=== PATIENT | female | born 2000 | race Caucasian/White ===

== ENCOUNTER 2020-12-02 08:08 | Outpatient (REF) | payer OTHER, SELFPAY ==
[2020-12-02 08:30] LABS: COVID-19 Test Negative (Negative)
== END 2020-12-02 08:09 | disposition home or self-care (01) ==
LOC: HO.LAB 08:08
PROVIDERS: Visit Provider Internal Medicine
DX: Z20.822 Contact with and (suspected) exposure to COVID-19 (principal)
CPT/HCPCS: 36415; 87635; C9803

== ENCOUNTER 2020-12-08 07:35 | Outpatient (REF) | payer OTHER, SELFPAY ==
[2020-12-08 07:56] LABS: COVID-19 Test Negative (Negative)
== END 2020-12-08 07:36 | disposition home or self-care (01) ==
LOC: HO.LAB 07:35
PROVIDERS: Visit Provider Internal Medicine
DX: Z20.822 Contact with and (suspected) exposure to COVID-19 (principal)
CPT/HCPCS: 36415; 87635; C9803

== ENCOUNTER 2020-12-14 18:03 | Emergency (ER) | payer OTHER, SELFPAY ==
[2020-12-14 18:07] VITALS: BP 113/81; PULSE 96; RESP 20; TEMP 37.7; O2SAT 98; BMI 36.6
--- NOTE | 2020-12-14 19:22 | ED.FEVER ---
HPI - Fever General Chief Complaint: Fever Stated Complaint: fever Time Seen by Provider: 12/14/20 19:03 Source: patient Mode of arrival: ambulatory Limitations: no limitations History of Present Illness HPI Narrative: 20 yr old female with a past medical history of tetralogy of fellot s/p repair here with complaints of subjective fevers, chills, headache, cough x4 days. Received Moderna vaccine 1 of 2 on Tuesday. Everyone in her home is COVID positive Related Data Allergies Allergy/AdvReac Type Severity Reaction Status Date / Time No Known Allergies Allergy Unverified 04/24/20 16:49 Review of Systems Review of Systems: Yes all other systems are reviewed and are negative Constitutional: Constitutional: Reports no additional constitutional complaints, Denies body ache(s), Denies chills, Reports fever(s) (Subjective), Reports headache(s) and Denies weakness Eyes: Eyes: Reports no additional eye complaints and Denies change in vision ENT: Reports system reviewed and no additional complaints, except as documented, Denies dizziness, Reports headache(s), Denies nasal congestion, Denies nasal discharge and Denies neck pain Cardiovascular: Cardiovascular: Reports no additional cardiovascular complaints, Denies chest pain, Denies leg edema and Denies dyspnea Respiratory: Respiratory: Reports no additional respiratory complaints, Reports cough and Denies dyspnea Gastrointestinal: Gastrointestinal: Reports no additional gastrointestinal complaints, Denies abdominal pain, Denies diarrhea, Denies nausea and Denies vomiting Genitourinary: Genitourinary: Reports no additional female genitourinary complaints and Denies urinary incontinence Musculoskeletal: Musculoskeletal: Reports no additional musculoskeletal complaints, Denies back pain, Denies arthralgias, Denies joint swelling, Denies neck pain, Denies numbness and Denies tingling Integumentary/Breasts: Skin/Breast: Reports system reviewed and no additional complaints, except as docu and Denies rash Neurologic: Reports system reviewed and no additional complaints, except as documented, Denies Abnormal speech present, Denies dizziness, Reports headache(s), Denies numbness, Denies tingling and Denies weakness PMFSH Past Medical History Attestation statement: The following information was validated with the patient. Source: old records reviewed and nursing notes reviewed Medical History Fallots tetralogy Heart murmur Social History Social History Advance Directives: No Advance Directives Information Provided: Yes Physical Exam Vital Signs: Vital Signs: Last Vital Signs Temp 99.8 F 12/14/20 18:07 Pulse 96 12/14/20 18:07 Resp 20 12/14/20 18:07 BP 113/81 12/14/20 18:07 Pulse Ox 98 12/14/20 18:07 Body Mass Index 36.6 Const: General: cooperative, healthy appearing, comfortable and no acute distress Orientation/consciousness: patient oriented x3 Limitations: no limitations HENMT: Head: Yes normal to inspection Ears: hearing grossly normal bilaterally General nose exam: Normal external nose present Face and sinus: Yes normal facial exam Mouth: Normal oral and palatal mucosa present Throat: Yes posterior oropharynx normal Eyes: General: appearance normal, both eyes and all related structures Pupils: Equal, round and reactive pupils present Neck: Neck: Yes normal visual inspection Chest: Chest palpation & inspection: normal inspection of the chest Resp: Effort & Inspection: normal respiratory effort Auscultation: clear to auscultation bilaterally Cardio: Rate: regular rate Rhythm: regular rhythm Peripheral pulses: Peripheral pulses 2+ throughout GI: Inspection: Yes normal to inspection Palpation (GI): Soft to palpation and nontender Auscultation: normal bowel sounds Back/Spine/Pelvis: Thoracic/Lumbar Spine: thoracic and lumbar spine normal to inspection Skin: General skin exam: no rashes or lesions noted Neuro: General: patient oriented x3, no focal motor deficits and normal sensation to monofilament Cranial nerves: Yes Equal, round and reactive pupils present Cognition (Neuro): normal cognition Speech: No Abnormal speech present Gait exam (Neuro): Normal gait present Motor exam (neuro): 5/5 motor strength present throughout Extrem: General: Yes normal to inspection, Yes no pedal edema and Yes no calf tenderness Course Course Course Narrative: 20 year old female here with URI symptoms x4 days. COVID exposure. COVID positive here. Hemodynamically stable. Well appearing. Speaking full sentences in no apparent distress. Lung sounds clear. Reviewed quarantine for home. Reviewed worrisome signs and symptoms of when to return to the emergency department. Comfortable discharge home. MDM - Fever Lab Data Labs: Lab Results 12/14/20 Range/Units 19:20 COVID-19 (ABEL) Positive A (Negative) COVID-19 Clin Com See Note Discharge Plan Discharge Clinical Impression: COVID-19 Patient Disposition: Home, Self-Care Instructions: COVID-19 (Coronavirus Disease 2019) (ED) Additional Instructions: Increase fluids, rest Take Motrin or Tylenol for pain or fever as needed Per the CDC you need to quarantine for total of 14 days from when your symptoms started Referrals: Lilo Zabala MD [Primary Care Provider] - 2 days Stand Alone Forms: Work/School Release
[2020-12-14 20:01] LABS: COVID-19 Test Positive (Negative); IDNOW Serial# 9DD0AD1C
== END 2020-12-14 20:29 | disposition home or self-care (01) ==
PROVIDERS: Nurse Practitioner Family; Emergency Provider Emergency Medicine; PCP Pediatrics
DX: U07.1 COVID-19 (principal); R50.9 Fever, unspecified; R51.9 Headache, unspecified; R05 Cough
CPT/HCPCS: 36415; 87635; 99283

== ENCOUNTER 2020-12-17 18:39 | Emergency (ER) | payer OTHER, SELFPAY ==
--- NOTE | ~2020-12-17 | XR_ITS ---
EXAMINATION: XR CHEST CLINICAL INFORMATION: Cough COMPARISON: 12/05/2006 TECHNIQUE: Frontal view of the chest was obtained. FINDINGS: Again seen is median sternotomy and mild cardiac enlargement. Some ill-defined patchy density seen at the right lung base and in the left midlung. No effusions are seen. No CHF is present. XR/XR chest 1V IMPRESSION: Ill-defined patchy infiltrates right lung base and left midlung.
--- NOTE | 2020-12-17 18:13 | ECG_ITS ---
Test Reason : CHEST PAIN Blood Pressure : / mmHG Vent. Rate : 086 BPM Atrial Rate : 086 BPM P-R Int : 128 ms QRS Dur : 164 ms QT Int : 408 ms P-R-T Axes : 053 108 058 degrees QTc Int : 488 ms Normal sinus rhythm Right bundle branch block Abnormal ECG No previous ECGs available Referred By: Generic ED Physician Electronically Signed By:BHARGAV BARBOUR MD
[2020-12-17 20:00] VITALS: BP 126/62; PULSE 86; RESP 16; TEMP 37.4; O2SAT 98; BMI 41.1
--- NOTE | 2020-12-17 21:20 | ED.GENADULT ---
HPI - General Adult General Chief complaint: Upper Respiratory Symptoms Stated complaint: covid + Time Seen by Provider: 12/17/20 20:56 Source: patient Mode of arrival: ambulatory Limitations: no limitations History of Present Illness HPI narrative: 20 y/o female with known COVID-19 presents to the ER wtih SOB, dry cough, N/V and chest tightness when she coughs. She states she got the 1st Moderna COVID vaccine 1 week ago, started to feel poorly the next couple of days. However when 4 days later she still was feeling ill she got tested and was found to be COVID positive. She has fevers of 100 and has been taking Tylenol and Motrin. She has no HENSON but has SOB when she has coughing fits. She feels fatigued and generally weak. She lives with her mom who is fully vaccinated and feeling well. complaint: COVID symptoms Onset (ago): day(s) (5) Location: head, chest and abdomen Radiation: non-radiation Severity: moderate Quality: aching Pain Consistency: intermittent Relieving factors: medication Exacerbating factors: movement Associated symptoms: chest pain, cough, fever/chills, headaches, loss of appetite, malaise, nausea/vomiting, shortness of breath and weakness Treatments prior to arrival: none Related Data Previous Rx's Medication Instructions Recorded albuterol sulfate 1 inh INHALATION QID PRN #6.7 g 12/17/20 azithromycin [Zithromax Z-Tyron] See Rx Instructions PO .COMPLEX #6 12/17/20 tab ondansetron 4 mg PO Q8H PRN #10 tab 12/17/20 prednisone 40 mg PO DAILY #10 tab 12/17/20 Allergies Allergy/AdvReac Type Severity Reaction Status Date / Time No Known Allergies Allergy Unverified 04/24/20 16:49 Review of Systems Review of Systems: Constitutional:+ Fever, + Chills ENT/Mouth: No sore throat, No Rhinorrhea, No Swallowing Difficulty Cardiovascular: + Chest Pain, +SOB, No Orthopnea, No Edema Respiratory: + Cough, No Sputum, No Wheezing, No dyspnea Gastrointestinal: + Nausea, + Vomiting, No Diarrhea, No abdominal Pain Genitourinary: No Dysuria, No Urinary Frequency, No Hematuria Musculoskeletal: No joint pain, No Myalgias Skin: No Skin Lesions, No rash Neuro: No Weakness, No Numbness, No Dizziness, + Headache Heme/Lymph: No Bruising, No Lymphadenopathy PMFSH Past Medical History Attestation statement: The following information was validated with the patient. Medical History Fallots tetralogy Heart murmur Social History Social History Advance Directives: No Advance Directives Information Provided: No Patient : No Physical Exam Vital Signs: Vital Signs: Last Vital Signs Temp 99.4 F 12/17/20 20:00 Pulse 86 12/17/20 20:00 Resp 16 12/17/20 20:00 BP 126/62 12/17/20 20:00 Pulse Ox 98 12/17/20 20:00 Body Mass Index 41.1 Appearance: Alert. Oriented X3. No acute distress. Eyes: Pupils equal, round and reactive to light. ENT: Pharynx normal. Neck: Normal inspection. Neck supple. CVS: Normal heart rate and rhythm. Pulses normal. Respiratory: No respiratory distress. Breath sounds normal. Abdomen: Soft and nontender. +BS x4 Skin: Skin warm and dry. Normal skin color. Normal skin turgor. No rashes. Extremities: No lower extremity edema. Negative Cassandra's sign. Neuro: Oriented X 3. Steady gait. Non-focal Course Course Course Narrative: 20 y/o female presenting with COVID-19 symptoms including SOB, cough, chest tightness when coughing as well as N/V. Her VS are normal. SpO2 98% on room air with clear lungs on exam. She is breathing comfortably. She was ambulated by myself with pulse oximetry and SpO2 remained 94% or greater without HENSON. PERC negative. Doubt PE. Her CXR shows evidence of pneumonia - will treat as COVID pneumonia with steroids and azithromycin as well as PRN albuterol inhaler. She is tolerating PO Powerade in the exam room with no vomiting. No abdominal tenderness. She is stable for d/c home with anti-emetic. Warning signs discussed to prompt urgent re-evaluation. Patient expressed understanding and agrees with plan. Procedures Pulse Oximetry Interpretation Digit-Finger: Initial pulse oximetry readin Pulse Oximetry: 94 Actions Taken: none Additional Comments: ambulated on room air without desaturations or respiratory distress Discharge Plan Discharge Clinical Impression: COVID-19 Patient Disposition: Home, Self-Care Instructions: COVID-19 (Coronavirus Disease 2019) (ED) Additional Instructions: You were found to be COVID-19 POSITIVE today. Your oxygen levels were normal. Your chest x-ray showed evidence of pneumonia which is often seen with COVID. Rest. Drink plenty of fluids. Do not go out in public for the next 5-7 days, or at least 48 hours after your symptoms resolved. Take over the counter cold/flu medications as needed for your symptoms. Take Tylenol and/or Motrin as needed for fevers and body aches. Follow up with your doctor this week. If you shortness of breath worsens, if you develop difficulty breathing or any other concerning symptom come back to the ER for further evaluation. Prescriptions: New ondansetron 4 mg tablet,disintegrating 4 mg PO Q8H PRN (Reason: nausea and vomiting) Qty: 10 RF: 0 prednisone 20 mg tablet 40 mg PO DAILY Qty: 10 RF: 0 azithromycin [Zithromax Z-Tyron] 250 mg tablet See Rx Instructions PO .COMPLEX Qty: 6 RF: 0 albuterol sulfate 90 mcg/actuation HFA aerosol inhaler 1 inh inhalation QID PRN (Reason: shortness of breath or wheezing) Qty: 6.7 RF: 0 Interventions: ED Discharge Assessment Last Done: 12/17/20 21:51 Discharge Date/Time: 12/17/20 21:54
[2020-12-17 23:30] VITALS: O2SAT 94; O2SAT 98
== END 2020-12-17 21:54 | disposition home or self-care (01) ==
PROVIDERS: Emergency Provider Emergency Medicine; PCP Pediatrics
DX: U07.1 COVID-19 (principal)
CPT/HCPCS: 71045; 93005; 99283; 99284

== ENCOUNTER 2021-05-31 19:10 | Emergency (ER) | payer OTHER, SELFPAY ==
[2021-05-31 19:32] VITALS: BP 109/78; PULSE 71; RESP 16; TEMP 37.2; O2SAT 99; BMI 23.8
[2021-05-31 20:00] VITALS: BP 115/74; PULSE 64; RESP 18; TEMP 37.1; O2SAT 100
[2021-05-31 20:32] LABS: Influenza A PCR NEGATIVE (Negative); Influenza B PCR NEGATIVE (Negative); Resp Syncy Virus RNA Qual PCR NEGATIVE (Negative); SARS COV2 PCR INHOUSE NEGATIVE (Negative)
--- NOTE | 2021-05-31 20:38 | ED.GENADULT ---
HPI - General Adult General Chief complaint: General Medical Stated complaint: Multiple complaints Time Seen by Provider: 05/31/21 20:26 Source: patient Mode of arrival: ambulatory Limitations: no limitations History of Present Illness HPI narrative: Patient with multiple complaints already received COVID-19 vaccine complaining of headache nausea body aches heartburn for last 2 days sensitive to light. No fever no chills never had migraine before no shortness of breath no cough Related Data Previous Rx's Medication Instructions Recorded albuterol sulfate 90 mcg/actuation 1 inh INHALATION QID PRN #6.7 g 12/17/20 aerosol inhaler azithromycin 250 mg tablet See Rx Instructions PO .COMPLEX #6 12/17/20 (Zithromax Z-Tyron) tab ondansetron 4 mg disintegrating 4 mg PO Q8H PRN #10 tab 12/17/20 tablet prednisone 20 mg tablet 40 mg PO DAILY #10 tab 12/17/20 zpwkvhewqz-wqwfdsktxmjix-lxnsyzow 1 cap PO Q6H PRN #20 cap 05/31/21 50 mg-300 mg-40 mg capsule (Fioricet) Allergies Allergy/AdvReac Type Severity Reaction Status Date / Time No Known Allergies Allergy Verified 05/31/21 19:32 Review of Systems Review of Systems: Yes all other systems are reviewed and are negative [facility] Past Medical History Medical History Fallots tetralogy Heart murmur Social History Social History Alcohol intake: never Patient Tobacco Use Status: Never used Tobacco Use of substances other than those prescribed or required for medical reasons: No Advance Directives: No Advance Directives Information Provided: No Physical Exam Vital Signs: Vital Signs: Last Vital Signs Temp 98.8 F 05/31/21 20:00 Pulse 64 05/31/21 20:00 Resp 18 05/31/21 20:00 BP 115/74 05/31/21 20:00 Pulse Ox 100 05/31/21 20:00 Body Mass Index 23.8 Appearance: Alert. Oriented X3. No acute distress. Eyes: PERRLA, ENT: Pharynx normal. Oral Mucosa moist Neck: Normal inspection. Neck supple. CVS: Normal heart rate and rhythm. Pulses normal. Respiratory: No respiratory distress. Equal air entry bilateral, no wheezing/rales/rhonchi Abdomen: Soft and nontender. Bowel sounds are present, Skin: Skin warm and dry. Normal skin color. Extremities: No lower extremity edema. No calf tenderness Neuro: Oriented X 3. Medical Decision Making MDM Narrative Medical decision making narrative: Patient felt better after Imitrex headache almost gone COVID test is negative will discharge patient on Fioricet likely patient has complex migraine Lab Data Lab results reviewed: Yes I reviewed the patient's lab results. Labs: Lab Results 05/31/21 05/31/21 05/31/21 Range/Units 19:40 20:47 20:47 Urine Color YELLOW Urine Appearance HAZY Urine pH 6.0 (5.0-8.0) Ur Specific [place] 1.025 (1.005-1.025) Urine Protein NEG (NEG-TRACE) MG/DL Urine Glucose (UA) NEG (NEG) MG/DL Urine Ketones NEG (NEG) MG/DL Urine Blood NEG (NEG) Urine Nitrite NEG (NEG) Ur Leukocyte Esterase NEG (NEG) Urine Test NEGATIVE (NEGATIVE) Coronavirus (PCR) NEGATIVE (Negative) Influenza Type A (PCR) NEGATIVE (Negative) Influenza Type B (PCR) NEGATIVE (Negative) RSV RNA Qual (PCR) NEGATIVE (Negative) Discharge Plan Discharge Clinical Impression: Migraine Qualifiers: Migraine type: without aura Status migrainosus presence: without status migrainosus Intractability: not intractable Qualified Code(s): G43.009 - Migraine without aura, not intractable, without status migrainosus Patient Disposition: Home, Self-Care Instructions: Migraine Headache (ED) Additional Instructions: Rest at home take medication as advised for possible migraine headache Prescriptions: New mvplieliyx-bovykbfhlkypy-ryoi [Fioricet] 50-300-40 mg capsule 1 cap PO Q6H PRN (Reason: headache) Qty: 20 RF: 0 No Action ondansetron 4 mg tablet,disintegrating 4 mg PO Q8H PRN (Reason: nausea and vomiting) Qty: 10 RF: 0 prednisone 20 mg tablet 40 mg PO DAILY Qty: 10 RF: 0 azithromycin [Zithromax Z-Tyron] 250 mg tablet See Rx Instructions PO .COMPLEX Qty: 6 RF: 0 albuterol sulfate 90 mcg/actuation HFA aerosol inhaler 1 inh inhalation QID PRN (Reason: shortness of breath or wheezing) Qty: 6.7 RF: 0 Interventions: ED Discharge Assessment Last Done: 05/31/21 21:54 Discharge Date/Time: 05/31/21 21:59
[2021-05-31] MEDS: SUMAtriptan succinate 6 MG/0.5 ML VIAL SUBCUT (20:46)
[2021-05-31 20:53] LABS: Appearance Urine HAZY; Color Urine YELLOW; Glucose Urine UA NEG (NEG); Leukocyte Esterase Urine NEG (NEG); Nitrite Urine NEG (NEG); Specific Gravity - Urine 1.025 (1.005-1.025); Urine Blood NEG (NEG); Urine Ketones NEG (NEG); Urine Protein NEG (NEG-TRACE)
[2021-05-31 20:56] LABS: UPreg QC Valid YES; Urine Pregnancy NEGATIVE (NEGATIVE)
--- NOTE | 2021-05-31 21:08 | PC.NURSE ---
patient a&ox3, c/o headache, pt medicated per order, will continue to monitor.
[2021-05-31] MEDS: Ondansetron ODT 4 MG TAB.RAPDIS TRANSLINGU (21:47)
--- NOTE | 2021-05-31 21:47 | PC.NURSE ---
pt medicated per order
--- NOTE | 2021-05-31 21:57 | PC.NURSE ---
patient states her headache has decreased, pain level has decreased to 11/15/
== END 2021-05-31 21:59 | disposition home or self-care (01) ==
PROVIDERS: Emergency Provider Internal Medicine; PCP Pediatrics
DX: G43.009 Migraine without aura, not intractable, without status migrainosus (principal); M79.10 Myalgia, unspecified site; Z20.822 Contact with and (suspected) exposure to COVID-19; Z79.899 Other long term (current) drug therapy
CPT/HCPCS: 0241U; 36415; 81003; 81025; 96372; 99284; J3030

== ENCOUNTER 2022-06-26 19:18 | Emergency (ER) | payer OTHER, SELFPAY ==
[2022-06-26 19:49] VITALS: BP 121/51; PULSE 52; RESP 16; TEMP 36.6; O2SAT 98; BMI 40.7
--- NOTE | 2022-06-26 19:49 | ED.SKABFB ---
HPI - Skin/Abscess/Foreign Bdy General Chief complaint: General Medical Stated complaint: ingrown toe nail Time Seen by Provider: 06/26/22 19:56 Source: patient Mode of arrival: ambulatory History of Present Illness HPI narrative: 21-year-old female presenting to the ED complaining of ingrown nail of the left great toe x1 week. Admits poked area with needle at home with mild pus drainage. Reports increasing pain. Denies fever, chills. MD complaint: other Onset (ago): week(s) Related Data Previous Rx's Medication Instructions Recorded albuterol sulfate 90 mcg/actuation 1 inh inhalation QID PRN shortness 12/17/20 aerosol inhaler of breath or wheezing #6.7 grams azithromycin 250 mg tablet See Rx Instructions PO .COMPLEX #6 12/17/20 (Zithromax Z-Tyron) tabs ondansetron 4 mg disintegrating 4 mg PO Q8H PRN nausea and 12/17/20 tablet vomiting #10 tabs prednisone 20 mg tablet 40 mg PO DAILY #10 tabs 12/17/20 xzifentkxr-pubhntwkgobid-xmlkwfir 1 cap PO Q6H PRN headache #20 caps 05/31/21 50 mg-300 mg-40 mg capsule (Fioricet) cephalexin 500 mg capsule 500 mg PO QID 7 days #28 caps 06/26/22 Allergies Allergy/AdvReac Type Severity Reaction Status Date / Time No Known Allergies Allergy Verified 06/26/22 19:49 Review of Systems Review of Systems: Constitutional: No Fever, No Chills ENT/Mouth: No Ear Pain, No Nasal Congestion, No sore throat, No Rhinorrhea, No Swallowing Difficulty Cardiovascular: No Chest Pain, No SOB Respiratory: No Cough, No Sputum Gastrointestinal: No Nausea, No Vomiting, No Diarrhea, No Constipation, No Abdominal pain Genitourinary: No Dysuria, No Urinary Frequency, No Hematuria, No Flank Pain Musculoskeletal: No joint pain, No Myalgias, No Joint Swelling Skin: + Skin Lesions, No rash Neuro: No Weakness, No Numbness, No Paresthesias Yes all other systems are reviewed and are negative Constitutional: Constitutional: Reports as per [facility] Past Medical History Attestation statement: The following information was validated with the patient. Medical History Fallots tetralogy Heart murmur Social History Social History Alcohol intake: never Patient Tobacco Use Status: Never used Tobacco Advance Directives: No Advance Directives Information Provided: No Physical Exam Vital Signs: Vital Signs: Last Vital Signs Temp 98 F 06/26/22 19:49 Pulse 52 06/26/22 19:49 Resp 16 06/26/22 19:49 BP 121/51 L 06/26/22 19:49 Pulse Ox 98 06/26/22 19:49 O2 Del Method 06/26/22 19:49 BMI result Body Mass Index 40.7 Const: General: cooperative, healthy appearing and no acute distress Orientation/consciousness: patient oriented x3 Limitations: no limitations HEENT: Head: Yes normal to inspection and Yes atraumatic Ears: hearing grossly normal bilaterally General nose exam: Normal external nose present Face and sinus: Yes normal facial exam Eyes: General: appearance normal, both eyes and all related structures EOM: EOMs intact bilaterally Neck: Neck: Yes normal visual inspection and Yes no meningeal signs Resp: Effort & Inspection: normal respiratory effort and no respiratory distress Cardio: Rate: regular rate Heart sounds: S1 normal heart sound present and S2 normal heart sound present Peripheral pulses: dorsalis pedis present Skin: Other: + ingrown toenail noted to left great toe lateral aspect with scant amount of pus drainage and mild erythema. Tender to palpation. No warmth, fluctuance or induration Rashes: no rashes Neuro: General: patient oriented x3, tone normal and no meningeal signs Gait exam (Neuro): Normal gait present Extrem: General: Yes normal to inspection MDM - Skin/Abscess/Foreign Bdy MDM Narrative Medical decision making narrative: 21-year-old female presenting to the ED complaining of ingrown nail of the left great toe x1 week. On exam vital signs stable, NAD, nontoxic-appearing, physical exam as above. Discussed with patient removal in the ED verse with Podiatry and patient would rather f/u with Podiatry will give PO Keflex and recc warm soaks Results discussed with patient including worrisome signs and symptoms and strict return precautions, and when to return to the emergency department. They verbalized understanding and feel safe for discharge at this time. Medical Records Attestation: I reviewed the patient's medical records. Lab Data Attestation: I reviewed the patient's lab results. Discharge Plan Discharge Clinical Impression: Ingrown left big toenail Patient Disposition: Home, Self-Care Instructions: Ingrown Nail (ED) Additional Instructions: Keflex as an antibiotic please take as prescribed. Soak your toe in warm water. Please follow-up with Podiatry. Area begins look worse, continues to have drainage, is red, increasingly swollen, or you develop fever return to the emergency department Prescriptions: New cephalexin 500 mg capsule 500 mg PO QID 7 Days Qty: 28 0RF No Action ondansetron 4 mg tablet,disintegrating 4 mg PO Q8H PRN (Reason: nausea and vomiting) Qty: 10 0RF prednisone 20 mg tablet 40 mg PO DAILY Qty: 10 0RF azithromycin [Zithromax Z-Tyron] 250 mg tablet See Rx Instructions PO .COMPLEX Qty: 6 0RF Rx Instructions: take 500 mg today (day 1), then 250 mg for 4 days (days 2-5) albuterol sulfate 90 mcg/actuation HFA aerosol inhaler 1 inh inhalation QID PRN (Reason: shortness of breath or wheezing) Qty: 6.7 0RF cazzyukdap-yxuikcjbnanox-ojtf [Fioricet] 50-300-40 mg capsule 1 cap PO Q6H PRN (Reason: headache) Qty: 20 0RF Referrals: Daniel Moreno DPM [Physician] - Samina Everett DPM [Physician] - Samina Everett DPM [Physician] - Anatoliy Mcghee DPM [Physician] - Obey Ignacio DPM [Physician] - Justus Gómez MD [Physician] - Interventions: ED Discharge Assessment Last Done: 06/26/22 19:59
--- NOTE | 2022-06-26 19:59 | PC.NURSE ---
pt seen and treated by provider in triage, pt discharged from triage after being registered
== END 2022-06-26 20:01 | disposition home or self-care (01) ==
PROVIDERS: Emergency Provider Student in an Organized Health Care Education/Training Program
DX: L60.0 Ingrowing nail (principal)
CPT/HCPCS: 99282; 99283

== ENCOUNTER 2023-11-05 11:22 | Emergency (ER) | payer OTHER, SELFPAY ==
--- NOTE | ~2023-11-05 | XR_ITS ---
EXAMINATION: XR CHEST CLINICAL INFORMATION: Cough COMPARISON: Chest radiograph from 12/17/2020 TECHNIQUE: Frontal view of the chest was obtained. FINDINGS: Subtle opacities right lung base may reflect atelectasis versus evolving infectious/inflammatory etiology. No pneumothorax. Trachea is midline. Cardiac mediastinal silhouette is stable. No large pleural effusion. Osseous structures are intact. Soft tissues are unremarkable. XR/XR chest 1V IMPRESSION: Subtle opacities right lung base may reflect atelectasis versus evolving infectious/inflammatory etiology.
[2023-11-05 11:30] VITALS: BP 131/80; PULSE 104; RESP 17; TEMP 37.3; O2SAT 95; BMI 38.3
--- NOTE | 2023-11-05 11:33 | ED_ITS ---
HPI - General Adult General Chief complaint: General Medical Stated complaint: pain from head to toe Time Seen by Provider: 11/05/23 11:57 Source: patient Mode of arrival: ambulatory Limitations: no limitations History of Present Illness HPI narrative: 22-year-old female with no significant past medical history presents to emergency department with complaints of a 3 day history of cough, chills, and generalized body aches starting on Tuesday. She reports she has been managing symptoms with huay-lfk-qxfzzom medications with moderate relief in symptoms. She denies any chest pain, shortness of breath pertinent positives and negatives discussed in HPI Related Data Previous Rx's Medication Instructions Recorded albuterol sulfate 90 mcg/actuation 1 inh inhalation QID PRN shortness 12/17/20 aerosol inhaler of breath or wheezing #6.7 grams azithromycin 250 mg tablet See Rx Instructions PO .COMPLEX #6 12/17/20 (Zithromax Z-Tyron) tabs ondansetron 4 mg disintegrating 4 mg PO Q8H PRN nausea and 12/17/20 tablet vomiting #10 tabs prednisone 20 mg tablet 40 mg (2 x 20 mg) PO DAILY #10 tabs 12/17/20 qahmfbjbor-nplrvxdyunvzu-lfyizcfi 1 cap PO Q6H PRN headache #20 caps 05/31/21 50 mg-300 mg-40 mg capsule (Fioricet) cephalexin 500 mg capsule 500 mg PO QID 7 days #28 caps 06/26/22 azithromycin 250 mg tablet See Rx Instructions PO .COMPLEX #6 11/05/23 (Zithromax Z-Tyron) tabs Allergies Allergy/AdvReac Type Severity Reaction Status Date / Time No Known Allergies Allergy Verified 06/26/22 19:49 Review of Systems Review of Systems: Yes all other systems are reviewed and are negative FORMERLY [facility], [facility] Past Medical History Medical History Fallots tetralogy Heart murmur Social History Social History Alcohol intake: never Patient Tobacco Use Status: Never used Tobacco Advance Directives: No Advance Directives Information Provided: No Physical Exam ED Vital Signs: Vital Signs - 24 hr 11/05/23 11:30 Temperature 99.1 F Pulse Rate 104 H Respiratory Rate 17 Blood Pressure 131/80 Pulse Oximetry 95 Oxygen Delivery Method Room Air BMI result Body Mass Index 38.3 Nursing notes and vital signs reviewed. GENERAL APPEARANCE: A&0 x 4, generally well appearing, no acute distress HENMT: Normal to inspection, atraumatic, face symmetrical. Normal external ears, nose, and oropharynx clear. EYE: PERRLA, EOM intact, structures appear normal NECK: Supple without stiffness or restricted ROM. HEART: Normal rate and regular rhythm, normal S1/S2, no M/R/G LUNGS: LS CTA, moving air well. Able to speak in complete sentences. No crackles, wheezes, or rhonchi auscultated BACK: No CVAT, no obvious deformity EXTREMITIES: Moving all extremities without difficulty. Normal capillary refill. NEUROLOGICAL: Alert and oriented, moving all 4 extremities with equal strength. CN not formally tested but appearing grossly intact. Observed to ambulate with normal gait. Cognition normal SKIN: Warm and dry without any lesions, rash, or visible sores Course Course Course Narrative: This is an RME: Additional HPI, ROS, PE not included below will be deferred to primary provider. 22 year old female no pmhx presents w/ fatigue, malaise, myalgias, chest tightness, productive cough, fevers, chills since Tuesday. Not improving. Negative covid at home. No Known sick contacts. Denies SOB, headache, vision changs, dizziness, weakness Medical Decision Making Medical Decision Making MDM Narrative: Old records reviewed for previous imaging, lab studies, ECGs, and notes. Patient was assessed the emergency department with no acute distress or toxicity noted. nasal serology positive for influenza negative for COVID. Chest x-ray completed, which have independently interpreted as negative for obvious acute findings. Radiologist remarks on atelectasis versus beginnings of infection. As patient has a mildly elevated temperature with tachycardia, plan for 5 day course of azithromycin for further prevention of pneumonia. Patient educated to continue use of zvlt-geu-dfwybjn medications for further management of symptoms. Patient is safe for discharge at this time with plan for traa-luz-bawvtfy Tylenol and/or NSAID such as ibuprofen or naproxen for fever/discomfort with dosing as per packaging. HPI, PE, diagnostics, and plan discussed with patient and family with no unanswered questions at this time. Strict return precautions given to return to the emergency department with new, worsening, or concerning emergent symptoms. Recommended to follow-up with there primary care provider in 24-48 hours for further treatment and management. Differential Diagnosis Differential Diagnoses: The differential diagnosis associated with the presentation includes But not limited to upper respiratory infection, viral syndrome, pneumonia, pharyngitis, sepsis, malignancy, asthma, COPD Lab Data MDM Lab Attestation statement: I reviewed the patient's lab results. Labs: Lab Results 11/05/23 Range/Units 11:40 Influenza Type A (PCR) POSITIVE A (Negative) Influenza Type B (PCR) NEGATIVE (Negative) RSV RNA Qual (PCR) NEGATIVE (Negative) SARS-CoV-2 RNA (RT-PCR) NEGATIVE (Negative) Independent Interpretation I performed an independent interpretation of an: Plain X-Ray Interpretation: as negative for obvious pneumonia. Discharge Plan Discharge Clinical Impression: Influenza A Patient Disposition: Home, Self-Care Instructions: Influenza (ED), Droplet Precautions (ED) Prescriptions: New azithromycin [Zithromax Z-Tyron] 250 mg tablet See Rx Instructions PO .COMPLEX Qty: 6 0RF Rx Instructions: For 250 mg dose pack: take 500 mg today (day 1), then 250 mg for 4 days (days 2-5) No Action ondansetron 4 mg tablet,disintegrating 4 mg PO Q8H PRN (Reason: nausea and vomiting) Qty: 10 0RF prednisone 20 mg tablet 40 mg PO DAILY Qty: 10 0RF azithromycin [Zithromax Z-Tyron] 250 mg tablet See Rx Instructions PO .COMPLEX Qty: 6 0RF Rx Instructions: take 500 mg today (day 1), then 250 mg for 4 days (days 2-5) albuterol sulfate 90 mcg/actuation HFA aerosol inhaler 1 inh inhalation QID PRN (Reason: shortness of breath or wheezing) Qty: 6.7 0RF cvmfeyfgar-ixmkfmjzanomb-pxoz [Fioricet] 50-300-40 mg capsule 1 cap PO Q6H PRN (Reason: headache) Qty: 20 0RF cephalexin 500 mg capsule 500 mg PO QID 7 Days Qty: 28 0RF Referrals: Physician,Nonstaff [Primary Care Provider] - Stand Alone Forms: Work/School Release Print Language: Turkish
[2023-11-05 13:02] LABS: Influenza A PCR POSITIVE (Negative); Influenza B PCR NEGATIVE (Negative); Resp Syncy Virus RNA Qual PCR NEGATIVE (Negative); SARS COV2 PCR INHOUSE NEGATIVE (Negative)
[2023-11-05 13:35] VITALS: BP 131/80; PULSE 104; RESP 17; TEMP 37.3; O2SAT 95
== END 2023-11-05 13:38 | disposition home or self-care (01) ==
PROVIDERS: Physician Assistant; Emergency Provider Student in an Organized Health Care Education/Training Program
DX: J10.1 Influenza due to other identified influenza virus with other respiratory manifestations (principal)
CPT/HCPCS: 0241U; 71045; 99283

== ENCOUNTER 2024-12-18 18:20 | Emergency (ER) | payer OTHER, SELFPAY ==
--- NOTE | 2024-12-18 19:06 | ED.GENADULT ---
HPI - General Adult General Chief complaint: General Medical Stated complaint: blood in stool x 3 days Time Seen by Provider: 12/18/24 21:59 Source: patient Mode of arrival: ambulatory Limitations: no limitations History of Present Illness ED Provider: Dr. Lora Terry HPI narrative: Patient comes to the emergency room complaining of rectal bleeding for 4 days. Patient states that every time that she has a bowel movement, the stool is covered with blood. Patient denies any abdominal pain, cramping, denies being on blood thinners. Denies any rectal pain, denies diarrhea. Related Data Previous Rx's ?Medication ?Instructions ?Recorded albuterol sulfate 90 mcg/actuation 1 inh inhalation QID PRN shortness 12/17/20 aerosol inhaler of breath or wheezing #6.7 grams azithromycin 250 mg tablet See Rx Instructions PO .COMPLEX #6 12/17/20 (Zithromax Z-Tyron) tabs ondansetron 4 mg disintegrating 4 mg PO Q8H PRN nausea and 12/17/20 tablet vomiting #10 tabs prednisone 20 mg tablet 40 mg (2 x 20 mg) PO DAILY #10 tabs 12/17/20 xdrdvxyqga-lesyqrtfmbfkw-ygzwuqtf 1 cap PO Q6H PRN headache #20 caps 05/31/21 50 mg-300 mg-40 mg capsule (Fioricet) cephalexin 500 mg capsule 500 mg PO QID 7 days #28 caps 06/26/22 azithromycin 250 mg tablet See Rx Instructions PO .COMPLEX #6 11/05/23 (Zithromax Z-Tyron) tabs hydrocortisone acetate 25 mg 25 mg AK BID PRN hemorrhoids #12 ea 12/18/24 rectal suppository (Anusol-HC) Allergies Allergy/AdvReac Type Severity Reaction Status Date / Time No Known Allergies Allergy Verified 12/18/24 19:10 Review of Systems Review of Systems: Constitutional : No Weight loss, No Fever, No Chills, No Night Sweats, No Fatigue, No Malaise ENT/Mouth : No Hearing loss, No Ear Pain, No Nasal Congestion, No Sinus Pain, No Hoarseness, No sore throat, No Rhinorrhea, No Swallowing Difficulty Eyes: No Eye Pain, No Swelling, No Redness, No Foreign Body, No Discharge, No Vision Changes Cardiovascular : No Chest Pain, No SOB, No Dyspnea on Exertion, No Orthopnea, No Edema, No Palpitations Respiratory : No Cough, No Sputum, No Wheezing, No Smoke Exposure, No Dyspnea Gastrointestinal : No Nausea, No Vomiting, No Diarrhea, No Constipation, No abdominal Pain, Complaining of rectal bleeding with bowel movements, painless Genitourinary : no irregular bleeding, No Dysuria, No Urinary Frequency, No Hematuria, No Urinary Incontinence, No Urgency, No Flank Pain, No Urinary Flow Changes, No Hesitancy Musculoskeletal : No joint pain, No Myalgias, No Joint Swelling Skin : No Skin Lesions, No rash Neuro : No Weakness, No Numbness, No Paresthesias, No Loss of Consciousness, No Dizziness, No Headache Psych : No Anxiety/Panic, No Depression, No SI/HI/AH/VH, No Social Issues, Heme/Lymph: No Bruising, No Bleeding,No Lymphadenopathy Endocrine : No Polyuria, No Polydipsia, No Temperature Intolerance FORMERLY [facility] Past Medical History Medical History Heart murmur Fallots tetralogy Social History Social History Alcohol intake: never Patient Tobacco Use Status: Never used Tobacco Smoked in Last 30 Days: No Use of substances other than those prescribed or required for medical reasons: No Advance Directives: No Advance Directives Information Provided: No Patient : No Physical Exam ED Vital Signs: Vital Signs - 24 hr 12/18/24 19:09 12/18/24 20:55 Temperature 97.7 F 98.0 F Pulse Rate 74 75 Respiratory Rate 20 25 H Blood Pressure 120/63 129/83 Pulse Oximetry 99 97 Oxygen Delivery Method Room Air Room Air BMI result Body Mass Index 41.1 Const Other: Appearance: Alert. Oriented X3. No acute distress. Eyes: Pupils equal, round and reactive to light. ENT: Pharynx normal. Neck: Normal inspection. Neck supple. No lymph nodes noted. No crepitus CVS: Normal heart rate and rhythm. Pulses normal. Normal S1 and S2 Respiratory: No respiratory distress. Breath sounds normal. No Wheezing. No rales Abdomen: Soft and nontender. No rigidity. No distention. rectal exam, mildly bloody discharge Skin: Skin warm and dry. Normal skin color. Normal skin turgor. Extremities: No lower extremity edema. No Lacerations. No Rash Neuro: Oriented X 3. No motor deficit. No sensory deficit. Moving all extremities. No slurred speech. CN 2 through 12 grossly intact Psych: calm, cooperative, normal affect Course Course Course Narrative: This is a rapid medical exam performed by Yonis Stern NP: Additional HPI, ROS, PE not included below will be deferred to primary provider. Patient is a 24-year-old female presenting with complaint of bright red blood in stool since last . Denies diarrhea/constipation. Not anticoagulated. Recent flu-like sxs, body aches, fatigue. Plan: basic labs Medical Decision Making Medical Decision Making [facility] Narrative: my interpretation of labs: No significant abnormality in patient's hematology or chemistry, normal LFTs, hCG negative, occult blood positive on physical exam, patient had no abdominal pain at all. Patient has had no pain in the abdomen or rectal area. I discussed with the patient that based on her physical exam, symptoms and labs, she likely has internal hemorrhoids. Patient is aware that if she continues having rectal bleeding for needs 2 days, she may need rubber band ligation, patient agrees with plan Differential Diagnosis Differential Diagnoses: The differential diagnosis associated with the presentation includes ( internal hemorrhoids, colitis, external hemorrhoids) Lab Data [facility] Lab Attestation statement: I reviewed the patient's lab results. 12/18/24 19:14 12/18/24 19:14 Labs: Lab Results 12/18/24 Range/Units 19:14 WBC 7.0 (4.8-10.8) X10*3/uL RBC 4.48 (4.20-5.50) X10*6/uL Hgb 13.7 (12.0-16.0) g/dl Hct 40.4 (37.0-47.0) % MCV 90.2 (80.0-98.0) fL MCH 30.6 (27.0-33.0) pg MCHC 33.9 (31.0-35.0) g/dl RDW 11.8 (11.0-16.0) % Plt Count 242 (160-400) X10*3/uL MPV 11.0 (9.4-12.3) fL Immature Gran % (Auto) 0.1 (0.0-0.4) % Neut % (Auto) 66.9 (45-73) % Lymph % (Auto) 16.6 L (20-40) % Kimball % (Auto) 14.0 H (2-11) % Eos % (Auto) 2.3 (0-4) % Baso % (Auto) 0.1 (0-2) % Lymph # (Auto) 1.2 (1.2-4.9) X10*3/uL Kimball # (Auto) 1.0 (0.1-1.2) X10*3/uL Eos # (Auto) 0.2 (0.0-0.4) X10*3/uL Baso # (Auto) 0.0 (0.0-0.2) X10*3/uL Abs Immat Gran (auto) 0.01 (0.00-0.03) X10*3/uL Absolute Neuts (auto) 4.7 (2.0-8.3) x10*3/uL Absolute Nucleated RBC 0.000 (0.0-0.012) X10*3/uL Nucleated RBC % (auto) 0.0 (0.0-0.2) /100WBC Sodium 140 (135-145) mmol/L Potassium 3.6 (3.3-5.1) mmol/L Chloride 104 (96-108) mmol/L Carbon Dioxide 23 (22-29) mmol/L Anion Gap 17 (12-20) BUN 16 (9-16) mg/dL Creatinine 0.82 (0.5-1.4) mg/dL Estim Creat Clear Calc 117.3 Estimated GFR > 60 Random Glucose 92 (60-115) mg/dL Calcium 9.4 (8.4-10.2) mg/dL Total Bilirubin 0.4 (0.0-1.0) mg/dL Direct Bilirubin 0.1 (0.0-0.5) mg/dL AST 25 (5-31) U/L ALT 23 (0-31) U/L Alkaline Phosphatase 125 H (39-117) U/L Total Protein 8.3 H (6.5-8.0) g/dL Albumin 4.7 (3.5-5.0) g/dL Beta HCG, Quant < 2 mIU/mL Influenza Type A (PCR) NEGATIVE (Negative) Influenza Type B (PCR) NEGATIVE (Negative) RSV RNA Qual (PCR) NEGATIVE (Negative) SARS-CoV-2 RNA (RT-PCR) NEGATIVE (Negative) S. pyogenes GrpA JAYSHREE Negative (Negative) Discharge Plan Discharge Clinical Impression: Hemorrhoids, internal Patient Disposition: Home, Self-Care Instructions: Hemorrhoids (ED) Additional Instructions: Please follow-up with your primary care physician tomorrow. If you have any worsening or new symptoms, please return to the emergency room or call 911 Prescriptions: New hydrocortisone acetate [Anusol-HC] 25 mg suppository 25 mg AK BID PRN (Reason: hemorrhoids) Qty: 12 0RF No Action ondansetron 4 mg tablet,disintegrating 4 mg PO Q8H PRN (Reason: nausea and vomiting) Qty: 10 0RF prednisone 20 mg tablet 40 mg PO DAILY Qty: 10 0RF azithromycin [Zithromax Z-Tyron] 250 mg tablet See Rx Instructions PO .COMPLEX Qty: 6 0RF Rx Instructions: take 500 mg today (day 1), then 250 mg for 4 days (days 2-5) albuterol sulfate 90 mcg/actuation HFA aerosol inhaler 1 inh inhalation QID PRN (Reason: shortness of breath or wheezing) Qty: 6.7 0RF cvmmykmgnd-eawebaptorcbn-erek [Fioricet] 50-300-40 mg capsule 1 cap PO Q6H PRN (Reason: headache) Qty: 20 0RF cephalexin 500 mg capsule 500 mg PO QID 7 Days Qty: 28 0RF azithromycin [Zithromax Z-Tyron] 250 mg tablet See Rx Instructions PO .COMPLEX Qty: 6 0RF Rx Instructions: For 250 mg dose pack: take 500 mg today (day 1), then 250 mg for 4 days (days 2-5) Print Language: Japanese
[2024-12-18 19:09] VITALS: BP 120/63; PULSE 74; RESP 20; TEMP 36.5; O2SAT 99; BMI 41.1
[2024-12-18 19:21] LABS: MANUAL DIFF FLAG NO
[2024-12-18 19:27] LABS: Basophils Percent Auto 0.1 % (0-2); Eosinophils Absolute Auto 0.2 X10*3/uL (0.0-0.4); Eosinophils Percent Auto 2.3 % (0-4); Hematocrit 40.4 % (37.0-47.0); Hemoglobin 13.7 g/dl (12.0-16.0); Imm Gran Abs Auto 0.01 X10*3/uL (0.00-0.03); Imm Gran Pct Auto 0.1 % (0.0-0.4); Lymphocytes Absolute Auto 1.2 X10*3/uL (1.2-4.9); Lymphocytes Percent Auto 16.6 % (20-40); Mean Corpuscular HGB Conc 33.9 g/dl (31.0-35.0); Mean Corpuscular Hemoglobin 30.6 pg (27.0-33.0); Mean Corpuscular Volume 90.2 fL (80.0-98.0); Neutrophils Absolute Auto 4.7 x10*3/uL (2.0-8.3); Neutrophils Percent Auto 66.9 % (45-73); Platelet Count 242 X10*3/uL (160-400); Red Blood Count 4.48 X10*6/uL (4.20-5.50); Red Cell Distribution Width 11.8 % (11.0-16.0)
[2024-12-18 19:32] LABS: IDNOW Serial# 6674DD1D; Strep A Nucleic Acid Negative (Negative)
[2024-12-18 19:37] LABS: Anion Gap 17 (12-20); Blood Urea Nitrogen 16 mg/dL (9-16); Calcium 9.4 mg/dL (8.4-10.2); Carbon Dioxide 23 mmol/L (22-29); Chloride 104 mmol/L (96-108); Creatinine Clr Calc Pharmacy 117.3; Estimated Glomerular Filt Rate > 60; Glucose Random 92 mg/dL (60-115); Potassium 3.6 mmol/L (3.3-5.1); Sodium 140 mmol/L (135-145)
[2024-12-18 19:46] LABS: HCG Quantitative < 2 mIU/mL
[2024-12-18 20:03] LABS: Influenza A PCR NEGATIVE (Negative); Influenza B PCR NEGATIVE (Negative); Resp Syncy Virus RNA Qual PCR NEGATIVE (Negative); SARS COV2 PCR INHOUSE NEGATIVE (Negative)
[2024-12-18 20:55] VITALS: BP 129/83; PULSE 75; RESP 25; TEMP 36.7; O2SAT 97
[2024-12-18 22:24] LABS: Alanine Aminotransferase 23 U/L (0-31); Albumin Level 4.7 g/dL (3.5-5.0); Alkaline Phosphatase 125 U/L (39-117); Aspartate Amino Transferase 25 U/L (5-31); Bilirubin Direct 0.1 mg/dL (0.0-0.5); Bilirubin Total 0.4 mg/dL (0.0-1.0); Total Protein 8.3 g/dL (6.5-8.0)
[2024-12-18 22:34] VITALS: BP 129/60; PULSE 69; RESP 24; TEMP 36.7; O2SAT 98
[2024-12-18 22:37] LABS: OBS Int Ctl Valid YES; OBS1 POSITIVE (NEGATIVE)
[2024-12-18 22:38] LABS: Appearance Urine Clear; Color Urine Yellow; Glucose Urine UA Negative (Negative); Leukocyte Esterase Urine Negative (Negative); Nitrite Urine Negative (Negative); PH 5.5 (5.0-9.0); Urine Blood Negative (Negative); Urine Ketones Negative (Negative); Urine Protein Negative (Neg-Trace)
[2024-12-18 23:03] VITALS: BP 129/60; PULSE 69; RESP 24; TEMP 36.7; O2SAT 98
== END 2024-12-18 23:04 | disposition home or self-care (01) ==
PROVIDERS: Registered Nurse Emergency; Emergency Provider Emergency Medicine
DX: K64.8 Other hemorrhoids (principal); K62.5 Hemorrhage of anus and rectum; Z03.818 Encounter for observation for suspected exposure to other biological agents ruled out; Z79.899 Other long term (current) drug therapy
CPT/HCPCS: 0241U; 36415; 80048; 80076; 81003; 82272; 84702; 85025; 87651; 99283; 99284

== ENCOUNTER 2025-01-29 06:09 | Emergency (ER) | payer OTHER, SELFPAY ==
[2025-01-29 06:17] VITALS: BP 119/70; PULSE 75; RESP 18; TEMP 36.9; O2SAT 95; BMI 42.1
[2025-01-29 06:34] VITALS: BP 119/70; PULSE 75; RESP 18; TEMP 36.9; O2SAT 95
--- NOTE | 2025-01-29 06:36 | PC.NURSE ---
assumed care of pt. Triaged in room. Pt n/v x6 hours, once an hour. Mom at bedside.
--- OUTSIDE RECORDS SUMMARY | 2025-01-29 06:45 | XMS_ITS | Clinical Summary ---
Author Organization [place] [address] [address] [facility] Building Address [address] [place] [address] Phone Care Team Providers Care Chain Hooker Name Role Phone Adal Chino MD Primary Care Provider Allergies Active Allergy Reactions Criticality Noted Date Comments Pollen Extracts 05/04/2022 Active Problems Problem Noted Date Diagnosed Date Hepatitis C test positive 08/31/2021 Overview (05/22/2024): Viral load non detected. Tetralogy of Fallot 08/28/2021 Asthma 08/28/2021 Anxiety disorder 08/28/2021 Overview (05/22/2024): [facility] [place] Immunizations Name Administration Dates Next Due Hepatitis B (Auavojk-R-Qviqj , Recombivax HB-Adult) 19yo and older 06/27/2023 Influenza Quadravalent, MDCK , 0.5ml, preservative free (Flucelvax) 6mo and older 06/27/2023 Influenza trivalent, MDCK, 0 .5mL, preservative free (Flucelvax) 6mo and older 07/04/2024 Moderna SARS-CoV-2 COVID-19, mRNA, LNP-S, preservative free 01/19/2022,12/10/2020 Pneumococcal conjugate 20 va lent (Prevnar 20, PCV 20) 2mo and older 06/27/2023 Tdap Tetanus diptheria acell ular pertussis (Boostrix; Adacel) 7yo and older 07/04/2024 Surgical History Surgery Date Site/Laterality Comments CARDIAC SURGERY 02/2000 PROCEDURE: HISTORICAL HEART SURGERY(ASD,VSD,VALVES) Medical History Medical History Date Comments Asthma DX:Asthma Pneumonia due to COVID-19 virus 12/2020 DX:Pneumonia due to COVID-19 virus Tetralogy of Fallot DX:Tetralogy of Fallot Anxiety disorder DX:Anxiety diso rder; COMMENT: [facility] [place] Family History Medical History Relation Name Comments Seizures Brother No Known Problems Father Diabetes Maternal Grandfather Hypertension Maternal Grandfather Arthritis Maternal Grandmother Diabetes Maternal Grandmother Hypertension Maternal Grandmother Diabetes Mother Hypertension Mother Seizures Mother Breast cancer Neg Hx Colon cancer Neg Hx Ovarian cancer Neg Hx Uterine cancer Neg Hx Relation Name Status Comments Brother Father Alive Maternal Grandfather Maternal Grandmother Mother Alive Social History Tobacco Use Types Packs/Day Years Used Date Smoking Tobacco: Never Smokeless Tobacco: Never Tobacco Cessation:Counseling Given: Not Answered Alcohol Use Standard Drinks/Week Comments Not Currently 0 (1 standard drink = 0.6 oz pur e alcohol) Comments No Sex and Gender Information Value Date Recorded Sex Assigned at Not on file Legal Sex Female 2:07 AM EST Gender Identity Not on file Sexual Orientation Not on file Obstetrics History Last Filed Vital Signs Vital Sign Reading Time Taken Comments Blood Pressure 102/64 07/04/2024 7:54 AM EST Pulse 66 10/21/2023 11:35 AM EDT Temperature - - Respiratory Rate 16 07/04/2024 7:54 AM EST Oxygen Saturation - - Inhaled Oxygen Concentration - - Weight 98 kg (216 lb) 07/04/2024 7:54 AM EST Height 160 cm (5' 3 ) 05/04/2022 10:16 AM EDT Body Mass Index 38.26 05/04/2022 10:16 AM EDT Plan of Treatment Health Maintenance Due Date Last Done Comments HPV Vaccines (1 - 3-dose series) 11/16/2014 Depression Screening 07/18/2022 Social Influencers of Health Screening 07/18/2022 Hepatitis B Vaccines (2 of 3 - 19+ 3-dose series) 07/25/2023 06/27/2023 COVID-19 Vaccine (3 - 2023-2 5 season) 2024 01/19/2022, 12/10/2020 Cervical Cancer Screening: Pap Smear 08/28/2024 08/28/2021, 08/28/2021, 08/28/2021 Cholesterol Screening (Lipid Panel) 07/04/2029 07/04/2024, 05/04/2022 DTaP,Tdap,and Td Vaccines (2 - Td or Tdap) 07/04/2034 07/04/2024 Gonorrhea/Chlamydia Screening Discontinued 08/28/2021 HIV Screening Completed 08/28/2021 Hepatitis C Screening Completed 08/28/2021 Pneumococcal Vaccine: Pediatrics (0 to 5 Years) and At-Risk Patients (6 to 64 Years) Completed 06/27/2023 Influenza Vaccine Completed 07/04/2024, 06/27/2023 HIB Vaccines Aged Out No longer eligi ble based on patient's age to complete this topic Hepatitis A Vaccines Aged Out No long er eligible based on patient's age to complete this topic IPV Vaccines Aged Out No longer eligi ble based on patient's age to complete this topic MMR Vaccines Aged Out No longer eligi ble based on patient's age to complete this topic Meningococcal ACWY Vaccine Aged Out N o longer eligible based on patient's age to complete this topic Meningococcal B Vaccine Aged Out No l onger eligible based on patient's age to complete this topic RSV Immunization Patients Under 20 months Aged Out No longer eligible based on patient's age to complete this topic Varicella Vaccines Aged Out No longer eligible based on patient's age to complete this topic Procedures Procedure Name Priority Date/Time Associated Diagnosis Comments LIPID PANEL WITH REFLEX TO DIRECT LDL Routine 07/04/2024 8:48 AM EST Health maintenance examination HEPATITIS C SCREENING Routine 08/28/2021 HIV SCREENING Routine 08/28/2021 PAP SMEAR Routine 08/28/2021 GONORRHEA/CHLAMYDIA SCRREENING Routine 08/28/2021 from Last 3 Months or Most Recently Relevant to Health Maintenance Results * Lipid panel with reflex to direct LDL (07/04/2024 8:48 AM EST) [facility] Signature Cholesterol 162 0 - 200 mg/dL LAB CHEMISTRY METHOD 07/04/2024 4:17 PM EST [facility] Triglycerides 104 0 - 150 mg/dL LAB CHEMISTRY METHOD 07/04/2024 4:17 PM [facility] HDL 54 >=40 mg/dL LAB CHEMISTRY METHOD 07/04/2024 4:17 PM [facility] LDL Calculated 87 0 - 100 mg/dL LAB CHEMISTRY METHOD 07/04/2024 4:17 PM [facility] VLDL Cholesterol Jean Marie 20.8 mg/dL LAB CHEMISTRY METHOD 07/04/2024 4:17 PM [facility] Non HDL Chol. (LDL+VLDL) 108 <145 mg/dL LAB CHEMISTRY METHOD 07/04/2024 4:17 PM [facility] Chol/HDL Ratio 3.0 0.0 - 4.4 LAB CHEMISTRY METHOD 07/04/2024 4:17 PM [facility] Blood Venous blood specimen / Unknown Venipuncture / Unknown 07/04/2024 8:48 AM EST 07/04/2024 8:48 AM EST Kenn XIE LAB BLOOD ORDERABLES Fi nal Result [facility] [address] [place] [address], * HIV Screening (08/28/2021) HIV Screening Abstracted Historical Provider HEALTH MAINTENANCE Final Result * Hepatitis C Screening (08/28/2021) Hepatitis C Screening Abstracted Historical Provider HEALTH MAINTENANCE Final Result * Gonorrhea/Chlamydia Screening (08/28/2021) Gonorrhea/Chla mydia Screening Abstracted Historical Provider HEALTH MAINTENANCE Final Result * Pap smear (08/28/2021) 08/28/2021 Narrative HISTORICAL TESTING LAB RESULTING AGENCY - 09/11/2021 10:40 AM EST [id number] THINPREP PAP, IMAGED: NEGATIVE FOR SQUAMOUS INTRAEPITHELIAL LESION AND MALIGNANCY . SHIFT IN RUDOLPH, SUGGESTIVE OF BACTERIAL VAGINOSIS. NOTE: THE PAP TEST IS A SCREENING TEST WITH AN INHERENT FALSE NEGATIVE RATE. AUTOMATED PRESCREENING OF ALL LIQUID BASED SPECIMENS IS PERFORMED BY THE THINPREP IMAGING SYSTEM UNLESS OTHERWISE STATED. MILA PATEL(ASCP) (CASE ELECTRONICALLY SIGNED 09 11 2021) ADEQUACY: SATISFACTORY ENDOCERVICAL/TRANSFORMATION ZONE COMPONENT PRESENT. SOURCE: THINPREP PAP HPV IF ASCUS, CERVICAL, IMAGED CLINICAL INFORMATION: HPV IF DIAGNOSIS OF ASCUS. HORMONES, PAP HX NEG, Z12.4 Maricruz YUN LAB CYTOLOGY ORDERABLES Final R esult HISTORICAL TESTING LAB RESULTING AGENCY from Last 3 Months or Most Recently Relevant to Health Maintenance Insurance HEALTH PLAN Care Teams Chain Hooker Relationship Specialty Start Date End Date Adal Chino MD [facility] [place] [address] PCP - General Internal Medicine 07/08/21
--- NOTE | 2025-01-29 07:11 | ED.GENADULT ---
HPI - General Adult General Chief complaint: Abdominal Pain Stated complaint: abd pain n/v/d Time Seen by Provider: 01/29/25 07:11 History of Present Illness ED Provider: Ryanne LARA narrative: The patient is a 24-year-old female with a history of tetralogy of follow corrected surgically has an . Generally speaking she is in good health otherwise. She returned 2 days ago from a cruise to the [facility]. The ship went from [place] to the [facility] and a few other places. She returned 2 days ago on Tuesday. She was feeling fine when she returned. Yesterday afternoon she started to feel unwell in the heat. She developed some nausea and vomiting during the evening. This got much worse at around midnight or 01:00. Throughout the morning she had multiple episodes of vomiting and also some generalized abdominal pain. No diarrhea. No fever. Ultimately she came to the emergency room. Her mother notices that there are some petechiae to the skin above the eyes which the mother speculates was related to the vomiting. She was still nauseated and vomiting when she arrived. No history of abdominal surgery. Related Data Previous Rx's ?Medication ?Instructions ?Recorded albuterol sulfate 90 mcg/actuation 1 inh inhalation QID PRN shortness 12/17/20 aerosol inhaler of breath or wheezing #6.7 grams azithromycin 250 mg tablet See Rx Instructions PO .COMPLEX #6 12/17/20 (Zithromax Z-Tyron) tabs ondansetron 4 mg disintegrating 4 mg PO Q8H PRN nausea and 12/17/20 tablet vomiting #10 tabs prednisone 20 mg tablet 40 mg (2 x 20 mg) PO DAILY #10 tabs 12/17/20 [id number]-chvendotiupfn-[id number] 1 cap PO Q6H PRN headache #20 caps 05/31/21 50 mg-300 mg-40 mg capsule (Fioricet) cephalexin 500 mg capsule 500 mg PO QID 7 days #28 caps 06/26/22 azithromycin 250 mg tablet See Rx Instructions PO .COMPLEX #6 11/05/23 (Zithromax Z-Tyron) tabs hydrocortisone acetate 25 mg 25 mg IN BID PRN hemorrhoids #12 ea 12/18/24 rectal suppository (Anusol-HC) ondansetron 4 mg disintegrating 4 mg PO Q6H PRN nausea and 01/29/25 tablet vomiting #10 tabs Allergies Allergy/AdvReac Type Severity Reaction Status Date / Time No Known Allergies Allergy Verified 01/29/25 06:18 Review of Systems Review of Systems: Yes all other systems are reviewed and are negative [facility] Past Medical History Medical History Heart murmur Fallots tetralogy Social History Social History Alcohol intake: never Patient Tobacco Use Status: Never used Tobacco Smoked in Last 30 Days: No Use of substances other than those prescribed or required for medical reasons: No Advance Directives: No Advance Directives Information Provided: Yes Patient : No Physical Exam ED Vital Signs: Vital Signs - 24 hr 01/29/25 06:17 01/29/25 06:34 01/29/25 12:06 Temperature 98.4 F 98.4 F 98.8 F Pulse Rate 75 75 66 Respiratory Rate 18 18 16 Blood Pressure 119/70 119/70 123/65 Pulse Oximetry 95 95 98 Oxygen Delivery Method Room Air Room Air Room Air BMI result Body Mass Index 42.1 Const Other: The patient was awake and alert. She seemed nauseated and was vomiting. She looked uncomfortable. Mental status was normal. HENMT Other: The face is symmetrical. Mucous membranes moist. Eyes Other: Pupils are round equal, conjunctivae are clear, extraocular movements intact Neck Neck: Yes normal visual inspection and Yes full ROM Resp Effort & Inspection: normal respiratory effort Auscultation: clear to auscultation bilaterally Cardio Rate: regular rate Rhythm: regular rhythm Heart sounds: S1 normal heart sound present and S2 normal heart sound present GI Other: The patient had generalized abdominal tenderness. No definite focal rebound or guarding. Skin Other: Skin was pale and dry. She had some petechiae to the skin above her eyelids. Neuro Other: The patient was awake and alert with a normal mental status. Cranial nerves are grossly intact. She moves her extremities normally and appropriately. Extrem Other: No peripheral edema Medications Administered Discontinued Medications Generic Name Dose Route Start Last Admin Trade Name Freq PRN Reason Stop Dose Admin Sodium Chloride 1,000 mls @ 999 mls/hr 01/29/25 07:30 01/29/25 10:34 Ns IV 01/29/25 08:30 Infused .Q1H1M FROY Infusion Acetaminophen 1,000 mg in 100 mls @ 400 mls/hr 01/29/25 07:26 01/29/25 08:08 Ofirmev IV 01/29/25 07:40 Infused ONCE ONE Infusion Ondansetron HCl 4 mg 01/29/25 07:26 01/29/25 07:38 Ondansetron Hcl 4 Mg/2 Ml Vial IVPUSH 01/29/25 07:27 4 mg ONCE ONE Administration Medical Decision Making Medical Decision Making [facility] Narrative: the patient is a 24-year-old who had surgical correction of tetralogy fellow was a baby but has otherwise been quite healthy. She returned 2 days ago from a [place] cruise. Yesterday she developed some sense of feeling unwell with nausea and vomiting throughout the night. Also some generalized abdominal pain. Her abdominal exam was very nonspecific. She was treated symptomatically with IV fluids, ondansetron, and IV acetaminophen. She had complete resolution of her symptoms. She was observed. Ultimately she was given a trial of oral intake which she did well with. There was no ongoing vomiting. No return of abdominal pain. On reexamination her abdomen seemed entirely soft and nontender. She will be discharged with a prescription for ondansetron. She should return if any worsening abdominal pain or fever or other significant symptoms. Lab Data 01/29/25 07:13 01/29/25 07:13 Labs: Lab Results 01/29/25 01/29/25 Range/Units 07:13 08:07 WBC 15.4 H (4.8-10.8) X10*3/uL RBC 4.43 (4.20-5.50) X10*6/uL Hgb 13.6 (12.0-16.0) g/dl Hct 39.3 (37.0-47.0) % MCV 88.7 (80.0-98.0) fL MCH 30.7 (27.0-33.0) pg MCHC 34.6 (31.0-35.0) g/dl RDW 12.1 (11.0-16.0) % Plt Count 253 (160-400) X10*3/uL MPV 10.9 (9.4-12.3) fL Immature Gran % (Auto) 0.5 H (0.0-0.4) % Neut % (Auto) 92.7 H (45-73) % Lymph % (Auto) 1.4 L (20-40) % Larue % (Auto) 4.9 (2-11) % Eos % (Auto) 0.4 (0-4) % Baso % (Auto) 0.1 (0-2) % Lymph # (Auto) 0.2 L (1.2-4.9) X10*3/uL Larue # (Auto) 0.8 (0.1-1.2) X10*3/uL Eos # (Auto) 0.1 (0.0-0.4) X10*3/uL Baso # (Auto) 0.0 (0.0-0.2) X10*3/uL Abs Immat Gran (auto) 0.08 H (0.00-0.03) X10*3/uL Absolute Neuts (auto) 14.2 H (2.0-8.3) x10*3/uL Absolute Nucleated RBC 0.000 (0.0-0.012) X10*3/uL Nucleated RBC % (auto) 0.0 (0.0-0.2) /100WBC Smear Tech's Comments VERIFIED Sodium 140 (135-145) mmol/L Potassium 4.3 (3.3-5.1) mmol/L Chloride 108 (96-108) mmol/L Carbon Dioxide 21 L (22-29) mmol/L Anion Gap 15 (12-20) BUN 23 H (9-16) mg/dL Creatinine 0.81 (0.5-1.4) mg/dL Estim Creat Clear Calc 120.3 Estimated GFR > 60 Random Glucose 110 (60-115) mg/dL Calcium 9.8 (8.4-10.2) mg/dL Total Bilirubin 0.7 (0.0-1.0) mg/dL AST 26 (5-31) U/L ALT 15 (0-31) U/L Alkaline Phosphatase 119 H (39-117) U/L C-Reactive Protein 0.69 H (< or = 0.50) mg/dL Total Protein 7.8 (6.5-8.0) g/dL Albumin 4.7 (3.5-5.0) g/dL Lipase 28 (8-78) U/L Beta HCG, Quant < 2 mIU/mL Urine Color Yellow Urine Appearance Cloudy Urine pH 6.0 (5.0-9.0) Ur Specific Byars >= 1.030 H (1.005-1.025) Urine Protein 30 (1+) H (Neg-Trace) mg/dL Urine Glucose (UA) Negative (Negative) mg/dL Urine Ketones Trace (Negative) mg/dL Urine Blood Negative (Negative) Urine Nitrite Negative (Negative) Ur Leukocyte Esterase Trace H (Negative) Urine RBC 0-2 (0-2) /HPF Urine WBC 0-5 (0-5) /HPF Ur Squamous Epith Cells 6-10 (0-2) /HPF Urine Bacteria 1+ (None Seen) Hyaline Casts 3-5 (0-2) /LPF Discharge Plan Discharge Clinical Impression: Abdominal pain with vomiting Patient Disposition: Home, Self-Care Additional Instructions: Please rest and take it easy today. I would eat a light diet. Take clear fluids and simple foods. By simple foods I mean rice or toast or other very simple foods. I have sent a prescription for ondansetron tablets to your pharmacy. You may use these as needed for any recurrent nausea. Please plan on following up with your regular doctor. Return to the emergency room if significantly worse. Prescriptions: New ondansetron 4 mg tablet,disintegrating 4 mg PO Q6H PRN (Reason: nausea and vomiting) Qty: 10 0RF No Action ondansetron 4 mg tablet,disintegrating 4 mg PO Q8H PRN (Reason: nausea and vomiting) Qty: 10 0RF prednisone 20 mg tablet 40 mg PO DAILY Qty: 10 0RF azithromycin [Zithromax Z-Tyron] 250 mg tablet See Rx Instructions PO .COMPLEX Qty: 6 0RF Rx Instructions: take 500 mg today (day 1), then 250 mg for 4 days (days 2-5) albuterol sulfate 90 mcg/actuation HFA aerosol inhaler 1 inh inhalation QID PRN (Reason: shortness of breath or wheezing) Qty: 6.7 0RF eicnqgidkr-[id number] [Fioricet] 50-300-40 mg capsule 1 cap PO Q6H PRN (Reason: headache) Qty: 20 0RF cephalexin 500 mg capsule 500 mg PO QID 7 Days Qty: 28 0RF azithromycin [Zithromax Z-Tyron] 250 mg tablet See Rx Instructions PO .COMPLEX Qty: 6 0RF Rx Instructions: For 250 mg dose pack: take 500 mg today (day 1), then 250 mg for 4 days (days 2-5) hydrocortisone acetate [Anusol-HC] 25 mg suppository 25 mg IN BID PRN (Reason: hemorrhoids) Qty: 12 0RF Referrals: Kenn Rivas PA [Physician Stylist Apprentice, Medical] Interventions: ED Discharge Assessment Last Done: 01/29/25 12:06 Discharge Date/Time: 01/29/25 12:15 Print Language: Telugu
[2025-01-29 07:19] LABS: Basophils Percent Auto 0.1 % (0-2); Eosinophils Absolute Auto 0.1 X10*3/uL (0.0-0.4); Eosinophils Percent Auto 0.4 % (0-4); Hematocrit 39.3 % (37.0-47.0); Hemoglobin 13.6 g/dl (12.0-16.0); Imm Gran Abs Auto 0.08 X10*3/uL (0.00-0.03); Imm Gran Pct Auto 0.5 % (0.0-0.4); Lymphocytes Absolute Auto 0.2 X10*3/uL (1.2-4.9); Lymphocytes Percent Auto 1.4 % (20-40); MANUAL DIFF FLAG SCAN; Mean Corpuscular HGB Conc 34.6 g/dl (31.0-35.0); Mean Corpuscular Hemoglobin 30.7 pg (27.0-33.0); Mean Corpuscular Volume 88.7 fL (80.0-98.0); Mean Platelet Volume 10.9 fL (9.4-12.3); Monocytes Absolute Auto 0.8 X10*3/uL (0.1-1.2); Monocytes Percent Auto 4.9 % (2-11); Neutrophils Absolute Auto 14.2 x10*3/uL (2.0-8.3); Neutrophils Percent Auto 92.7 % (45-73); Platelet Count 253 X10*3/uL (160-400); Red Blood Count 4.43 X10*6/uL (4.20-5.50); Red Cell Distribution Width 12.1 % (11.0-16.0); SCAN SMEAR FLAG 1; White Blood Count 15.4 X10*3/uL (4.8-10.8)
[2025-01-29] MEDS: Acetaminophen 1,000 MG/100 ML PIGGYBACK 400 MG IV (07:38)
[2025-01-29] MEDS: ondansetron HCL 4 MG/2 ML VIAL IVPUSH (07:38)
[2025-01-29] MEDS: 0.9 % Sodium Chloride 1,000 ML 999 ML IV (07:39)
[2025-01-29 07:41] LABS: SLIDE REVIEW VERIFIED
[2025-01-29 07:50] LABS: Alanine Aminotransferase 15 U/L (0-31); Albumin Level 4.7 g/dL (3.5-5.0); Alkaline Phosphatase 119 U/L (39-117); Anion Gap 15 (12-20); Aspartate Amino Transferase 26 U/L (5-31); Bilirubin Total 0.7 mg/dL (0.0-1.0); Blood Urea Nitrogen 23 mg/dL (9-16); Calcium 9.8 mg/dL (8.4-10.2); Carbon Dioxide 21 mmol/L (22-29); Chloride 108 mmol/L (96-108); Creatinine Clr Calc Pharmacy 120.3; Estimated Glomerular Filt Rate > 60; Glucose Random 110 mg/dL (60-115); HCG Quantitative < 2 mIU/mL; Lipase 28 U/L (8-78); Potassium 4.3 mmol/L (3.3-5.1); Sodium 140 mmol/L (135-145); Total Protein 7.8 g/dL (6.5-8.0)
[2025-01-29 08:15] LABS: Appearance Urine Cloudy; Color Urine Yellow; Glucose Urine UA Negative (Negative); Leukocyte Esterase Urine Trace (Negative); Nitrite Urine Negative (Negative); Specific Gravity - Urine >= 1.030 (1.005-1.025); UMIC TRIGGER UACC YES; Urine Blood Negative (Negative); Urine Ketones Trace mg/dL (Negative); Urine Protein 30 (1+) mg/dL (Neg-Trace)
[2025-01-29 08:21] LABS: Bacteria Urine 1+ (None Seen); RBC Urine 0-2 /HPF (0-2); WBC Urine 0-5 /HPF (0-5)
[2025-01-29 12:06] VITALS: BP 123/65; PULSE 66; RESP 16; TEMP 37.1; O2SAT 98
[2025-01-29 12:31] LABS: C Reactive Protein 0.69 mg/dL (< or = 0.50)
== END 2025-01-29 12:15 | disposition home or self-care (01) ==
PROVIDERS: Emergency Provider Emergency Medicine
DX: R11.2 Nausea with vomiting, unspecified (principal); R10.84 Generalized abdominal pain; Z79.899 Other long term (current) drug therapy
CPT/HCPCS: 36415; 80053; 81001; 83690; 84702; 85025; 86140; 96361; 96365; 96375; 99284; 99285; J0131; J2405